=== PATIENT | female | born 1935 | race Caucasian/White ===

== ENCOUNTER → 2016-08-03 | Outpatient (CLI) | payer OTHER ==
[~2016-08-03] MED LIST: ASPI81CH43 PO; CIPR-217 PO; FURO20TA PO; LEV50T PO; POT20T PO; Pantoprazole Sodium Sesquihydr PO; SACC250C PO; WARF5TAB PO
[2016-08-03 10:32] LABS: Basophils # (auto) 0 uL; CONDITION Y; Eosinophils # (auto) 0.1 uL; Eosinophils % (auto) 1.9 % (0.0-7.0); Hematocrit 42.9 % (36.0-46.0); Hemoglobin 14.7 g/dL (12.2-16.2); Lymphocytes # (auto) 0.6 uL; Mean Corpuscular Hemoglobin 32.8 pg (28.0-32.0); Mean Corpuscular Hgb Conc. 34.2 g/dL (32.0-36.0); Mean Corpuscular Volume 95.8 fL (80.0-100.0); Mean Platelet Volume 8.2 fL (7.4-10.4); Monocytes # (auto) 0.3 uL; Monocytes % (auto) 6.6 % (0.0-12.0); Neutrophils # (auto) 3.8 uL; Neutrophils % (auto) 78.5 % (37.0-80.0); Platelet Count (auto) 153 10^3/uL (140-450); Red Cell Distribution Width 14.3 % (11.6-16.0); White Blood Cell 4.8 10^3/uL (4.4-10.8)
[2016-08-03 10:43] LABS: Urine Bilirubin Negative (Negative); Urine Blood TRACE /uL (Negative); Urine Color Yellow (Yellow); Urine Glucose Normal (Normal); Urine Ketone Negative (Negative); Urine Nitrite Negative (Negative); Urine RBC 2 /hpf (0 - 4); Urine Squamous Epithelial Cell FEW /hpf (<5); Urine Urobilinogen Normal (Negative); Urine pH 5.5 (5.0-8.0)
[2016-08-03 11:14] LABS: Albumin 3.3 g/dL (3.4-5.0); BUN/Creatinine Ratio 27.1; Bilirubin, Total 1.2 mg/dL (0.2-1.0); Potassium 4.4 mmol/L (3.5-5.1); Total Protein 7.2 g/dL (6.4-8.2)
== END | disposition home or self-care (01) ==
LOC: LAB 08:54
PROVIDERS: ATTEND Internal Medicine
DX: Z00.00 Encounter for general adult medical examination without abnormal findings (principal); E78.2 Mixed hyperlipidemia; I10 Essential (primary) hypertension; E55.9 Vitamin D deficiency, unspecified
CPT/HCPCS: 36415; 80053; 80061; 81001; 82306; 84443; 85025

== ENCOUNTER → 2016-08-31 | Outpatient (CLI) | payer OTHER | END | disposition home or self-care (01) | LOC: LAB 09:22 | PROVIDERS: ATTEND Internal Medicine | DX: E03.9 Hypothyroidism, unspecified (principal) | CPT/HCPCS: 36415; 84443; 84480 ==

== ENCOUNTER 2016-11-16 15:19 | Emergency (ER) | payer OTHER ==
[~2016-11-16] VITALS: Ht 157.5 cm; Wt 81.6 kg
[2016-11-16 15:41] VITALS: BP 126/92
[2016-11-16] MEDS ORDERED: KETOROLAC TROMETH 60MG/2ML VIAL IM ONE (16:15)
== END 2016-11-16 17:33 | disposition home or self-care (01) ==
LOC: ER 15:25
DX: S40.012A Contusion of left shoulder, initial encounter (principal); S70.01XA Contusion of right hip, initial encounter; M62.830 Muscle spasm of back; I48.91 Unspecified atrial fibrillation; I11.0 Hypertensive heart disease with heart failure; I50.9 Heart failure, unspecified; K21.9 Gastro-esophageal reflux disease without esophagitis; W01.0XXA Fall on same level from slipping, tripping and stumbling without subsequent striking against object, initial encounter; Y93.89 Activity, other specified; Y99.8 Other external cause status; Y92.002 Bathroom of unspecified non-institutional (private) residence as the place of occurrence of the external cause
CPT/HCPCS: 70450; 72110; 73030; 73502; 96372; 99284; J1885

== ENCOUNTER 2016-11-18 04:42 | Inpatient (IN) | payer OTHER ==
[~2016-11-18] VITALS: Ht 157.5 cm; Wt 89.4 kg
[2016-11-18] MEDS ORDERED: SODIUM CHLORIDE 0.9% 2,000 ML IV ONE (05:21)
[2016-11-18 06:06] LABS: Basophils # (auto) 0 uL; Basophils % (auto) 0.4 % (0.0-2.0); Eosinophils # (auto) 0.1 uL; Eosinophils % (auto) 1.3 % (0.0-7.0); Hematocrit 42.9 % (36.0-46.0); Hemoglobin 14.4 g/dL (12.2-16.2); Lymphocytes # (auto) 0.2 uL; Lymphocytes % (auto) 4.4 % (10.0-50.0); Mean Corpuscular Hemoglobin 32.8 pg (28.0-32.0); Mean Corpuscular Hgb Conc. 33.7 g/dL (32.0-36.0); Mean Corpuscular Volume 97.5 fL (80.0-100.0); Mean Platelet Volume 7.6 fL (6.9-10.8); Monocytes # (auto) 0.3 uL; Monocytes % (auto) 7.2 % (0.0-12.0); Neutrophils # (auto) 4.2 uL; Neutrophils % (auto) 86.7 % (37.0-80.0); Nucleated Red Blood Cells % 0.1 %; Platelet Count (auto) 100 10^3/uL (140-450); Red Cell Distribution Width 14.3 % (11.8-14.3); White Blood Cell 4.8 10^3/uL (4.4-10.8)
[2016-11-18 06:19] LABS: INR 2.1 (0.9-1.15); Partial Thromboplastin Time 34.9 sec (22.64-33.71); Prothrombin Time 23.1 sec (9.37-12.3)
[2016-11-18 06:23] LABS: Albumin 3.3 g/dL (3.4-5.0); BUN/Creatinine Ratio 29.6; Calcium 8.8 mg/dL (8.5-10.1); Potassium 4.1 mmol/L (3.5-5.1)
[2016-11-18 06:26] LABS: Bilirubin, Total 2.9 mg/dL (0.2-1.0)
[2016-11-18 07:01] LABS: B-Type Natriuretic Peptide 160.8 pg/mL (0-100)
[2016-11-18 07:02] LABS: Temperature: 23.5 C (20.0-25.0)
[2016-11-18] MEDS ORDERED: LORazepam 0.5 MG TAB PO PRN (12:00)
[2016-11-18] MEDS ORDERED: PROMETHAZINE HCL 25 MG/ML 1ML IV PRN (12:00)
[2016-11-18] MEDS ORDERED: LORazepam 2MG/ML-1ML VIAL IV ONE (12:00)
[2016-11-18] MEDS ORDERED: TEMAZEPAM 15 MG CAP PO PRN (12:00)
[2016-11-18] MEDS ORDERED: MORPHINE SULF INJ 2 MG/ML SYRINGE 1ML IV PRN (12:00)
[2016-11-18] MEDS ORDERED: ALBUTEROL SULF 2.5 MG/0.5ML(0.5%) NEB SOLN NEB PRN (12:15)
[2016-11-18 13:15] LABS: Urine Bilirubin Negative (Negative); Urine Blood TRACE /uL (Negative); Urine Color Yellow (Yellow); Urine Glucose Normal (Normal); Urine Ketone 1+ (Negative); Urine Nitrite Negative (Negative); Urine RBC 1 /hpf (0 - 4); Urine Squamous Epithelial Cell FEW /hpf (<5); Urine pH 5.5 (5.0-8.0)
[2016-11-18 13:49] VITALS: BP 159/68
[2016-11-18 17:00] VITALS: BP 136/59
[2016-11-18] MEDS: IPRATROPIUM BROM 0.5 MG/2.5ML INH SOL NEB SCH (19:20)
[2016-11-18] MEDS: ALBUTEROL SULF 2.5 MG/0.5ML(0.5%) NEB SOLN NEB SCH (19:20)
[2016-11-18 20:00] VITALS: BP 111/64
[2016-11-18 22:00] VITALS: BP 111/64
[2016-11-19] VITALS (7 sets, daily range): BP systolic 99–143; BP diastolic 64–82
[2016-11-19] MEDS: IPRATROPIUM BROM 0.5 MG/2.5ML INH SOL NEB SCH ×4 (01:04→20:16)
[2016-11-19] MEDS: ALBUTEROL SULF 2.5 MG/0.5ML(0.5%) NEB SOLN NEB SCH ×4 (01:04→20:16)
[2016-11-19] MEDS: HYDROcodone-ACET 5/325MG TAB PO PRN ×2 (05:37→21:50)
[2016-11-19] MEDS: ENOXAPARIN SOD 40 MG/0.4 ML SYRINGE SC SCH (09:49)
[2016-11-19] MEDS ORDERED: AMPICILLIN 500 MG CAP PO ONE (14:00)
[2016-11-19] MEDS: AMPICILLIN 500 MG CAP PO SCH (18:32)
[2016-11-20] VITALS (7 sets, daily range): BP systolic 108–146; BP diastolic 64–99
[2016-11-20] MEDS: AMPICILLIN 500 MG CAP PO SCH ×5 (00:03→23:46)
[2016-11-20] MEDS: IPRATROPIUM BROM 0.5 MG/2.5ML INH SOL NEB SCH ×4 (00:33→18:38)
[2016-11-20] MEDS: ALBUTEROL SULF 2.5 MG/0.5ML(0.5%) NEB SOLN NEB SCH ×4 (00:33→18:38)
[2016-11-20 05:40] LABS: Basophils # (auto) 0 uL; Basophils % (auto) 0.2 % (0.0-2.0); Eosinophils # (auto) 0.1 uL; Hematocrit 40.4 % (36.0-46.0); Hemoglobin 13.6 g/dL (12.2-16.2); Lymphocytes # (auto) 0.6 uL; Mean Corpuscular Hemoglobin 32.7 pg (28.0-32.0); Mean Corpuscular Hgb Conc. 33.7 g/dL (32.0-36.0); Mean Corpuscular Volume 97.1 fL (80.0-100.0); Monocytes # (auto) 0.7 uL; Monocytes % (auto) 7.5 % (0.0-12.0); Neutrophils # (auto) 7.3 uL; Neutrophils % (auto) 84.3 % (37.0-80.0); Nucleated Red Blood Cells % 0.1 %; Platelet Count (auto) 112 10^3/uL (140-450); Red Cell Distribution Width 13.7 % (11.8-14.3); White Blood Cell 8.7 10^3/uL (4.4-10.8)
[2016-11-20 06:16] LABS: BUN/Creatinine Ratio 27.8; Bilirubin, Total 2.9 mg/dL (0.2-1.0); Calcium 8.1 mg/dL (8.5-10.1); Potassium 4.2 mmol/L (3.5-5.1); Total Protein 6.6 g/dL (6.4-8.2)
[2016-11-20] MEDS: ENOXAPARIN SOD 40 MG/0.4 ML SYRINGE SC SCH (09:46)
[2016-11-21] MEDS: IPRATROPIUM BROM 0.5 MG/2.5ML INH SOL NEB SCH ×4 (00:52→19:28)
[2016-11-21] MEDS: ALBUTEROL SULF 2.5 MG/0.5ML(0.5%) NEB SOLN NEB SCH ×4 (00:52→19:28)
[2016-11-21 05:18] VITALS: BP 149/79
[2016-11-21] MEDS: AMPICILLIN 500 MG CAP PO SCH ×4 (07:34→23:38)
[2016-11-21 09:00] VITALS: BP 140/89
[2016-11-21] MEDS: ENOXAPARIN SOD 40 MG/0.4 ML SYRINGE SC SCH (10:00)
[2016-11-21] MEDS ORDERED: CALCIUM W/VIT D (600MG/400IU) TAB PO ONE (12:00)
[2016-11-21 13:00] VITALS: BP 134/74
[2016-11-21] MEDS ORDERED: ALENDRONATE SODIUM 10 MG TAB PO SCH (13:30)
[2016-11-21 17:00] VITALS: BP 137/57
[2016-11-21 18:45] LABS: Urine Bilirubin Negative (Negative); Urine Blood 3+ /uL (Negative); Urine Color Yellow (Yellow); Urine Glucose Normal (Normal); Urine Ketone Negative (Negative); Urine Nitrite Negative (Negative); Urine RBC 285 /hpf (0 - 4); Urine Urobilinogen Normal (Negative)
[2016-11-21 20:00] VITALS: BP 100/52
[2016-11-21 22:20] VITALS: BP 100/52
[2016-11-22] VITALS (8 sets, daily range): BP systolic 100–147; BP diastolic 52–109
[2016-11-22] MEDS: IPRATROPIUM BROM 0.5 MG/2.5ML INH SOL NEB SCH ×4 (00:38→19:11)
[2016-11-22] MEDS: ALBUTEROL SULF 2.5 MG/0.5ML(0.5%) NEB SOLN NEB SCH ×4 (00:38→19:11)
[2016-11-22] MEDS: AMPICILLIN 500 MG CAP PO SCH ×3 (06:34→17:17)
[2016-11-22] MEDS: ENOXAPARIN SOD 40 MG/0.4 ML SYRINGE SC SCH (10:41)
[2016-11-22] MEDS ORDERED: WARF1TAB36 PO (16:40)
[2016-11-22] MEDS ORDERED: AMLO5TAB2 PO (16:44)
[2016-11-22] MEDS ORDERED: OXYB15TA12 PO (16:44)
[2016-11-22] MEDS ORDERED: ENA10T PO (16:44)
[2016-11-22] MEDS ORDERED: LEVO100T8 PO (16:44)
[2016-11-23] MEDS: AMPICILLIN 500 MG CAP PO SCH ×3 (00:31→13:20)
[2016-11-23 05:00] VITALS: BP 122/75
[2016-11-23] MEDS: ACETAMINOPHEN 500 MG TAB PO PRN ×2 (05:46→14:09)
[2016-11-23] MEDS: ALBUTEROL SULF 2.5 MG/0.5ML(0.5%) NEB SOLN NEB SCH ×3 (07:31→13:50)
[2016-11-23] MEDS: IPRATROPIUM BROM 0.5 MG/2.5ML INH SOL NEB SCH ×3 (07:31→13:50)
[2016-11-23 09:00] VITALS: BP 124/72
[2016-11-23] MEDS: ENOXAPARIN SOD 40 MG/0.4 ML SYRINGE SC SCH (10:00)
[2016-11-23 12:04] VITALS: BP 124/72
[2016-11-23 13:00] VITALS: BP 140/75
== END 2016-11-23 16:00 | disposition home or self-care (01) | DRG 85 ==
LOC: ER 04:44 → EAST 04:45 → WEST WING 16:18
PROVIDERS: ADMIT Internal Medicine; ATTEND Internal Medicine Pulmonary Disease
DX: S06.4X0A Epidural hemorrhage without loss of consciousness, initial encounter (principal); G92 Toxic encephalopathy; D68.69 Other thrombophilia; I13.0 Hypertensive heart and chronic kidney disease with heart failure and stage 1 through stage 4 chronic kidney disease, or unspecified chronic kidney disease; I48.91 Unspecified atrial fibrillation; E66.01 Morbid (severe) obesity due to excess calories; I50.32 Chronic diastolic (congestive) heart failure; E44.1 Mild protein-calorie malnutrition; N18.3 Chronic kidney disease, stage 3 (moderate); S32.049A Unspecified fracture of fourth lumbar vertebra, initial encounter for closed fracture; I48.92 Unspecified atrial flutter; N39.0 Urinary tract infection, site not specified; K29.70 Gastritis, unspecified, without bleeding; S33.5XXA Sprain of ligaments of lumbar spine, initial encounter; R44.1 Visual hallucinations; W18.39XA Other fall on same level, initial encounter; S51.012A Laceration without foreign body of left elbow, initial encounter; K21.9 Gastro-esophageal reflux disease without esophagitis; Z90.49 Acquired absence of other specified parts of digestive tract; Y93.89 Activity, other specified; Y92.098 Other place in other non-institutional residence as the place of occurrence of the external cause; Y99.8 Other external cause status; Z82.49 Family history of ischemic heart disease and other diseases of the circulatory system; Z82.62 Family history of osteoporosis; Z83.3 Family history of diabetes mellitus; Z68.36 Body mass index [BMI] 36.0-36.9, adult; Z88.8 Allergy status to other drugs, medicaments and biological substances; X58.XXXA Exposure to other specified factors, initial encounter; Y93.9 Activity, unspecified; Y92.9 Unspecified place or not applicable
CPT/HCPCS: 36415; 51702; 71010; 72148; 80053; 81001; 83880; 84443; 84484; 85025; 85610; 85652; 85730; 87070; 87077; 87086; 87186; 87205; 94640; 95819; 96374; 96375; 97116; 97530

== ENCOUNTER 2016-11-25 09:41 | Emergency (ER) | payer OTHER ==
[~2016-11-25] VITALS: Ht 167.6 cm; Wt 77.1 kg
[~2016-11-25 09:41] MED LIST changes: +AMLO5TAB2 PO; -CIPR-217 PO; +ENA10T PO; -FURO20TA PO; -LEV50T PO; +LEVO100T8 PO; +OXYB15TA12 PO; -POT20T PO; -Pantoprazole Sodium Sesquihydr PO; -SACC250C PO; -WARF5TAB PO
[2016-11-25] MEDS ORDERED: HYDROmorphone HCL 2 MG/ML VL IV ONE (11:30)
[2016-11-25] MEDS ORDERED: HYDROcodone-ACET 5/325MG TAB PO ONE (11:30)
[2016-11-25 12:03] LABS: Hemoglobin 14.2 g/dL (12.2-16.2); Red Cell Distribution Width 13.7 % (11.8-14.3)
[2016-11-25 12:10] LABS: Hematocrit 41.8 % (36.0-46.0); Mean Corpuscular Hemoglobin 32.7 pg (28.0-32.0); Mean Corpuscular Volume 96.4 fL (80.0-100.0); Mean Platelet Volume 7.3 fL (6.9-10.8); Platelet Count (auto) 156 10^3/uL (140-450); White Blood Cell 6.8 10^3/uL (4.4-10.8)
[2016-11-25 12:13] LABS: Urine Bilirubin Negative (Negative); Urine Blood Negative /uL (Negative); Urine Color Yellow (Yellow); Urine Glucose Normal (Normal); Urine Ketone Negative (Negative); Urine Mucus FEW (None Seen); Urine Nitrite Negative (Negative); Urine RBC 1 /hpf (0 - 4); Urine Squamous Epithelial Cell FEW /hpf (<5); Urine Urobilinogen Normal (Negative); Urine pH 6.5 (5.0-8.0)
[2016-11-25 12:13] LABS: Metamyelocytes % 0; Myelocytes % 0; Promyelocytes % 0; Reactive Lymphocytes 0
[2016-11-25 12:15] LABS: Albumin 2.8 g/dL (3.4-5.0); BUN/Creatinine Ratio 30.2; Calcium 8.7 mg/dL (8.5-10.1); INR 1.4 (0.9-1.15); Partial Thromboplastin Time 30.1 sec (22.64-33.71); Potassium 4.2 mmol/L (3.5-5.1); Prothrombin Time 15.3 sec (9.37-12.3)
[2016-11-25 12:19] LABS: Bilirubin, Total 1.1 mg/dL (0.2-1.0); Total Protein 6.6 g/dL (6.4-8.2)
[2016-11-25 12:21] LABS: B-Type Natriuretic Peptide 121.02 pg/mL (0-100)
[2016-11-25 12:24] LABS: Platelet Estimate Adequate; RBC Morphology Normal
[2016-11-25 12:29] LABS: Temperature: 23.9 C (20.0-25.0)
[2016-11-25] MEDS ORDERED: SODIUM CHLORIDE 0.9% 1,000 ML IV ONE (13:15)
[2016-11-25] MEDS ORDERED: LORazepam 2MG/ML-1ML VIAL IV ONE (14:15)
[2016-11-25] MEDS ORDERED: LORazepam 2MG/ML-1ML VIAL IV PRN (14:15)
[2016-11-25] MEDS ORDERED: SODIUM CHLORIDE 0.9% 1,000 ML IV SCH (18:26)
[2016-11-25] MEDS ORDERED: HYDROmorphone HCL 2 MG/ML VL IV PRN (18:30)
[2016-11-25] MEDS ORDERED: NITROGLYCERIN 0.4 MG SL TAB SL PRN (18:30)
[2016-11-25] MEDS ORDERED: LACTULOSE 20Gm/30ML SOLN PO PRN (18:30)
[2016-11-25] MEDS ORDERED: MORPHINE SULFATE 10 MG/ML INJ 1ML SDV IV PRN (18:30)
[2016-11-25] MEDS ORDERED: ONDANSETRON HCL 4 MG/2 ML VIAL IV PRN (18:30)
[2016-11-25] MEDS ORDERED: PANTOPRAZOLE 40 MG/10 ML VIAL IV ONE (18:30)
[2016-11-25] MEDS ORDERED: LEVOFLOXACIN 500MG 100 ML IV ONE (18:45)
[2016-11-25 21:30] VITALS: BP 129/65
[2016-11-26] MEDS ORDERED: LEVOTHYROXINE SODIUM 100 MCG TAB PO SCH (07:00)
[2016-11-26] MEDS ORDERED: LEVOFLOXACIN 500MG 100 ML IV SCH (10:00)
[2016-11-26] MEDS ORDERED: amLODIPine BESYLATE 5 MG TAB PO SCH (10:00)
[2016-11-26] MEDS ORDERED: ENALAPRIL MALEATE 10 MG TAB PO SCH (10:00)
[2016-11-26] MEDS ORDERED: OXYBUTYNIN CHL 5 MG TAB PO SCH (10:00)
[2016-11-26] MEDS ORDERED: PANTOPRAZOLE 40 MG/10 ML VIAL IV SCH (10:00)
== END 2016-11-25 22:04 | disposition short-term general hospital (02) ==
LOC: EDBD 09:41 → ER 09:41
DX: S32.040D Wedge compression fracture of fourth lumbar vertebra, subsequent encounter for fracture with routine healing (principal); I48.91 Unspecified atrial fibrillation; I13.0 Hypertensive heart and chronic kidney disease with heart failure and stage 1 through stage 4 chronic kidney disease, or unspecified chronic kidney disease; I50.9 Heart failure, unspecified; N18.3 Chronic kidney disease, stage 3 (moderate); G89.29 Other chronic pain; M54.9 Dorsalgia, unspecified; X58.XXXD Exposure to other specified factors, subsequent encounter; Z88.6 Allergy status to analgesic agent
CPT/HCPCS: 36415; 51702; 71010; 72131; 72148; 80053; 81001; 83880; 84484; 85007; 85027; 85610; 85730; 93005; 96361; 96365; 96375; 99285; C9113; J1170; J1956; J2060

== ENCOUNTER 2017-04-30 10:21 | Emergency (ER) | payer OTHER ==
[~2017-04-30] VITALS: Ht 157.5 cm; Wt 81.2 kg
[~2017-04-30 10:21] MED LIST changes: +WARF2TAB49 PO
[2017-04-30 11:20] LABS: Basophils # (auto) 0 uL; Basophils % (auto) 0.6 % (0.0-2.0); Eosinophils # (auto) 0 uL; Eosinophils % (auto) 1.1 % (0.0-7.0); Hematocrit 40.2 % (36.0-46.0); Hemoglobin 13.3 g/dL (12.2-16.2); Lymphocytes # (auto) 0.4 uL; Lymphocytes % (auto) 8.1 % (10.0-50.0); Mean Corpuscular Hemoglobin 32.7 pg (28.0-32.0); Mean Corpuscular Volume 99.1 fL (80.0-100.0); Monocytes # (auto) 0.3 uL; Monocytes % (auto) 6.3 % (0.0-12.0); Neutrophils # (auto) 3.7 uL; Neutrophils % (auto) 83.9 % (37.0-80.0); Nucleated Red Blood Cells % 0.2 %; Platelet Count (auto) 108 10^3/uL (140-450); Red Blood Cells 4.06 10^6/uL (4.0-5.20); Red Cell Distribution Width 14.8 % (11.8-14.3); White Blood Cell 4.4 10^3/uL (4.4-10.8)
[2017-04-30 11:38] LABS: Albumin 3.3 g/dL (3.4-5.0); BUN/Creatinine Ratio 23.1; Bilirubin, Total 1.8 mg/dL (0.2-1.0); Calcium 8.5 mg/dL (8.5-10.1); Potassium 4.1 mmol/L (3.5-5.1); Total Protein 7.3 g/dL (6.4-8.2)
[2017-04-30 11:40] LABS: INR 1.13 (0.9-1.15); Partial Thromboplastin Time 29.3 sec (22.64-33.71); Prothrombin Time 12.3 sec (9.37-12.3)
[2017-04-30 13:09] VITALS: BP 137/89
[2017-07-11] MEDS ORDERED: POTA20TA53 PO (13:46)
[2017-07-11] MEDS ORDERED: FURO40TA PO (13:46)
== END 2017-04-30 14:10 | disposition home or self-care (01) ==
LOC: ER 10:21
DX: R04.0 Epistaxis (principal); D69.6 Thrombocytopenia, unspecified; I11.0 Hypertensive heart disease with heart failure; I48.91 Unspecified atrial fibrillation; I50.9 Heart failure, unspecified; K21.9 Gastro-esophageal reflux disease without esophagitis; Z90.49 Acquired absence of other specified parts of digestive tract; Z88.6 Allergy status to analgesic agent; Z79.82 Long term (current) use of aspirin; Z79.01 Long term (current) use of anticoagulants
CPT/HCPCS: 36415; 80053; 85025; 85610; 85730

== ENCOUNTER 2017-05-04 07:24 | Emergency (ER) | payer OTHER ==
[~2017-05-04] VITALS: Ht 157.5 cm; Wt 75.7 kg
[2017-05-04 08:21] LABS: Basophils # (auto) 0 uL; Basophils % (auto) 0.6 % (0.0-2.0); Eosinophils # (auto) 0.1 uL; Eosinophils % (auto) 1.3 % (0.0-7.0); Hematocrit 32.1 % (36.0-46.0); Hemoglobin 10.6 g/dL (12.2-16.2); Lymphocytes # (auto) 0.5 uL; Lymphocytes % (auto) 8.6 % (10.0-50.0); Monocytes # (auto) 0.4 uL; Monocytes % (auto) 6.1 % (0.0-12.0); Neutrophils % (auto) 83.4 % (37.0-80.0); Nucleated Red Blood Cells % 0.1 %; Platelet Count (auto) 128 10^3/uL (140-450); Red Blood Cells 3.21 10^6/uL (4.0-5.20); Red Cell Distribution Width 14.9 % (11.8-14.3)
[2017-05-04 08:35] LABS: INR 1.2 (0.9-1.15); Partial Thromboplastin Time 28.5 sec (22.64-33.71); Prothrombin Time 13.1 sec (9.37-12.3)
[2017-05-04 08:45] LABS: Albumin 3.2 g/dL (3.4-5.0); BUN/Creatinine Ratio 28.8; Bilirubin, Total 1.4 mg/dL (0.2-1.0); Calcium 8.2 mg/dL (8.5-10.1); Potassium 4.1 mmol/L (3.5-5.1)
[2017-05-04 12:04] VITALS: BP 113/61
== END 2017-05-04 12:20 | disposition home or self-care (01) ==
LOC: ER 07:24
DX: R04.0 Epistaxis (principal); I11.0 Hypertensive heart disease with heart failure; I50.9 Heart failure, unspecified; I48.91 Unspecified atrial fibrillation; K21.9 Gastro-esophageal reflux disease without esophagitis; Z90.49 Acquired absence of other specified parts of digestive tract; Z90.89 Acquired absence of other organs; Z88.8 Allergy status to other drugs, medicaments and biological substances
CPT/HCPCS: 36415; 71045; 80053; 85025; 85610; 85730